=== PATIENT | male | born 1960 | race Caucasian/White ===

== ENCOUNTER 2018-03-28 12:54 | Inpatient (IN) | payer BC ==
[~2018-03-28] VITALS: Ht 170.2 cm; Wt 121.6 kg
[2018-03-28 12:55] VITALS: BP 173/107
--- NOTE | 2018-03-28 13:04 | NUR ---
AMBULATES OT BED 6. PT STATES "I FEEL MUCH BETTER THAN BEFORE WHEN I CAME IN."
--- NOTE | 2018-03-28 13:07 | NUR ---
C/O CP 02/27 ASSOCIATED WITH SOB, MILD DIZZINESS, AND DIAPHORESIS SUDDEN ONSET THIS MORNING WHILE AT REST. DENIES N/V. HX: DENIES. DENIES N/V/D; SKIN IS PINK/WARM/DRY; PATIENT POSITIONED FOR COMFORT; HOB ELEVATED; BEDRAILS UP X2; BED DOWN. ER MD MADE AWARE OF PT STATUS.
[2018-03-28] MEDS ORDERED: MORPHINE SULFATE 2 MG/ML SYR IVP ONE (13:40)
[2018-03-28] MEDS ORDERED: ASPIRIN 81 MG TAB.CHEW PO ONE (13:40)
[2018-03-28] MEDS ORDERED: NITROGLYCERIN 0.4 MG TAB SL ONE ×4 (13:40→15:05)
--- NOTE | 2018-03-28 13:56 | NUR ---
lab at bedside
--- NOTE | 2018-03-28 14:07 | NUR ---
Note undone in EDM - 03/28/18 at 1431 by MED1 C/O CP 02/27 ASSOCIATED WITH SOB, MILD DIZZINESS, AND DIAPHORESIS SUDDEN ONSET THIS MORNING WHILE AT REST. DENIES N/V. HX: DENIES. DENIES N/V/D; SKIN IS PINK/WARM/DRY; PATIENT POSITIONED FOR COMFORT; HOB ELEVATED; BEDRAILS UP X2; BED DOWN. ER MADE AWARE OF PT STATUS.
--- NOTE | 2018-03-28 14:11 | NUR ---
2ND DOSE OF NTD [address] GOODEN ORDERED .
[2018-03-28 14:15] LABS: BASOPHILS # (AUTO) 0.1 K/uL (0.00-0.22); BASOPHILS % (AUTO) 0.8 % (0.0-2.0); EOSINOPHILS # (AUTO) 0.6 K/uL (0-0.4); HEMATOCRIT 48.9 % (36-52); HEMOGLOBIN 16.1 g/dL (12.0-18.0); LYMPHOCYTES # (AUTO) 2.5 K/uL (2.0-11.5); LYMPHOCYTES % (AUTO) 27.9 % (20.5-51.1); MEAN CORPUSCULAR HEMOGLOBIN 28 pg (27-31); MEAN CORPUSCULAR HGB CONC 33 g/dL (33-37); MEAN CORPUSCULAR VOLUME 85.6 fL (80-94); MONOCYTES # (AUTO) 0.9 K/uL (0.8-1.0); MONOCYTES % (AUTO) 9.7 % (1.7-9.3); NEUTROPHILS # (AUTO) 4.8 K/uL (1.8-7.7); NEUTROPHILS % (AUTO) 54.6 % (42.2-75.2); PLATELET COUNT (AUTO) 256 K/uL (140-450); RED BLOOD CELL COUNT(AUTO) 5.72 MIL/uL (4.20-6.10); RED CELL DISTRIBUTION WIDTH 13.7 % (11.6-13.7); WHITE BLOOD COUNT (AUTO) 8.9 K/uL (4.8-10.8)
[2018-03-28 14:42] LABS: ANION GAP 14.8 (8-16); CARBON DIOXIDE 26.1 mmol/L (21-32); POTASSIUM 3.9 mmol/L (3.5-5.1)
[2018-03-28 14:47] LABS: ALBUMIN 4.2 g/dL (3.4-5.0); TOTAL BILIRUBIN 0.4 mg/dL (0.0-1.0)
[2018-03-28] MEDS ORDERED: MORPHINE SULFATE 4 MG/ML SYR IVP ONE (15:05)
[2018-03-28] MEDS ORDERED: NITROGLYCERIN 2% 1 GM PKT TP ONE (15:05)
[2018-03-28] MEDS ORDERED: PANTOPRAZOLE 40 MG INJ VIAL IVP ONE (15:05)
[2018-03-28] MEDS ORDERED: METOCLOPRAMIDE 10 MG/2 ML INJ VIAL IVP ONE (15:05)
[2018-03-28] MEDS ORDERED: HYDROcodone/APAP 7.5/325 MG 1 TAB PO PRN (15:25)
[2018-03-28] MEDS ORDERED: ONDANSETRON 4 MG/2 ML VIAL IM/IVP PRN (15:25)
[2018-03-28] MEDS ORDERED: DOCUSATE SODIUM 100 MG GELCAP PO PRN (15:25)
--- NOTE | 2018-03-28 16:20 | NUR ---
Patient appears to be resting comfortably in bed. Vital Signs within normal limits. Respirations even and unlabored.WILL CONTINUE TO MONITOR.
[2018-03-28 16:53] LABS: PROTHROMBIN TIME 9.2 secs (10.8-13.4)
[2018-03-28 16:58] LABS: FREE T4 (FREE THYROXINE) 1.04 ng/dL (0.76-1.46); MAGNESIUM 2.2 mg/dL (1.8-2.4); PHOSPHORUS 2.5 mg/dL (2.5-4.9); THYROID STIMULATING HORMONE 1.59 uIU/mL (0.34-3.74)
[2018-03-28] MEDS ORDERED: LISINOPRIL 5 MG TAB PO SCH (17:00)
[2018-03-28] MEDS ORDERED: MORPHINE SULFATE 2 MG/ML SYR IVP PRN (17:20)
--- NOTE | 2018-03-28 17:44 | NUR ---
Patient will be admitted to care of dr gomez. Admited to TELE. Will go to room 119B. Belongings list completed. Report to TREY ALCARAZ.
[2018-03-28 17:45] VITALS: BP 135/87
--- NOTE | 2018-03-28 17:45 | NUR ---
PATIENT ARRIVED VIA BED TO FLOOR, PATIENT AMBULATED ON STEADY GAIT TO BED. PATIENT AOX4, STABLE. DX OF CHEST PAIN, HX OF HTN. NO CHEST PAIN AT THE MOMENT. LUNG SOUND CLEAR, ACTIVE BOWEL SOUNDS. IV TO LEFT AC 20G INTACT, ASYMPTOMATIC AND PATENT. UPDATED BOARD. INFORMED PATIENT ABOUT PLAN OF CARE. PATIENT VERBALIZED UNDERSTANDING. MRSA SCREENING DONE. INITIAL ASSESSMENT DONE. ORIENTED PATIENT TO ROOM, CALL LIGHT, PHONE, AND BATHROOM. ALSO BROUGHT PATIENT'S CARDIAC DINNER. SAFETY PRECAUTION IN PLACE, CALL LIGHT WITHIN REACH, WILL CONTINUE TO MONITOR PATIENT.
[2018-03-28] MEDS: ACETAMINOPHEN 325 MG TAB PO PRN ×2 (17:55→18:19)
--- NOTE | 2018-03-28 18:19 | NUR ---
PATIENT C/O OF HEADACHE. TYLENOL GIVEN. ONE PILL FELL ON FLOOR. ANOTHER ONE TAKEN FROM PYXIS AND GIVEN. PATIENT TOLERATED IT WELL. PATIENT CURRENTLY EATING DINNER COMFORTABLY. DENIES CHEST PAIN. SOCKS GIVEN. WILL CONTINUE TO MONITOR PATIENT.
[2018-03-28] MEDS: NACL 0.9% 1,000 ML IV SCH (18:21)
--- NOTE | 2018-03-28 19:35 | NUR ---
REPORT GIVEN TO INTERNET MARKETING ASSISTANT NURSE AT BEDSIDE FOR CONTINUITY OF CARE. PATIENT IN STABLE CONDITION.
--- NOTE | 2018-03-28 19:50 | NUR ---
RECEIVED SBAR FROM AHMET CASANOVA RN. PATIENT GSC 15 AND HAS PLEASANT DEMEANOR. BREATH SOUNDS ARE CLEAR AND ACTIVE BOWEL SOUNDS NOTED. THERE IS A #20 IN THE RAC RECEIVING NS AT 100 ML/HR. SITE IS DRY, INTACT, AND ASYMPTOMATIC. VSS AND PATIENT IS AFEBRILE. INITIAL ASSESSMENT COMPLETE. NEEDS MET AT THIS TIME. HOB AT 30 DEGREES WITH BED IN LOWEST POSITION. CALL LIGHT WITHIN REACH. CONTINUE TO MONITOR PATIENT.
[2018-03-28 20:00] VITALS: BP 135/84
[2018-03-28] MEDS: METOPROLOL 25 MG TAB PO SCH (21:36)
--- NOTE | 2018-03-28 21:40 | NUR ---
TOLERATED DUE MEDICATION WITH NO SIGNS OF DISTRESS NOTED. NEEDS MET AT THIS TIME. HOB AT 30 DEGREES WITH BED IN LOWEST POSITION. CALL LIGHT WITHIN PATIENT'S REACH. CONTINUE TO MONITOR PATIENT.
[2018-03-29] VITALS (8 sets, daily range): BP systolic 122–165; BP diastolic 60–103
--- NOTE | 2018-03-29 00:08 | NUR ---
PATIENT SLEEPING IN BED. AROUSABLE BY NAME. VSS AND PT AFEBRILE. NO C/O PAIN OR DISCOMFORT AT THIS TIME. PATIETNT'S NEEDS MET AT THIS TIME. HOB AT 30 DEGREES WITH BED IN LOWEST POSITION. CALL LIGHT WITHIN REACH. CONTINUE TO MONITOR PATIENT.
[2018-03-29 01:26] LABS: BILIRUBIN,URINE NEGATIVE (NEGATIVE); BLOOD, URINE NEGATIVE (NEGATIVE); LEUKOCYTE ESTERASE ,URINE NEGATIVE (NEGATIVE); NITRITE, URINE NEGATIVE (NEGATIVE); UGLUCOSE NEGATIVE (NEGATIVE)
[2018-03-29 01:27] LABS: APPEARANCE,URINE CLEAR (CLEAR); COLOR,URINE YELLOW (YELLOW)
[2018-03-29 01:29] LABS: RBC,URINE NONE SEEN /HPF (0-5); WBC,URINE NONE SEEN /HPF (0-5)
--- NOTE | 2018-03-29 03:35 | NUR ---
PATIENT ASLEEP IN BED, BUT IS AROUSABLE BY NAME. VSS AND PATIENT IS AFEBRILE. DENIES PAIN OR DISCOMFORT. NEEDS MET AT THIS TIME. CALL LIGHT WITHIN REACH. CONTINUE TO MONITOR PATIENT.
[2018-03-29 05:16] LABS: BARBITURATE, URINE NEG. ng/ml (NEG <=200); BENZODIAZEPINE, URINE NEG. ng/mL (NEG <=200); CANNABINOID, URINE NEG. ng/mL (NEG <=50); COCAINE, URINE NEG. ng/mL (NEG <=300); OPIATE, URINE NEG. ng/mL (NEG <=2000); PHENCYCLIDINE SCREEN,URINE NEG. ng/mL (NEG <=25)
[2018-03-29 06:18] LABS: T4 (THYROXINE) 8.3 ug/dL (4.5-12.0)
[2018-03-29 07:04] LABS: BASOPHILS # (AUTO) 0.1 K/uL (0.00-0.22); BASOPHILS % (AUTO) 0.5 % (0.0-2.0); EOSINOPHILS # (AUTO) 0.3 K/uL (0-0.4); EOSINOPHILS % (AUTO) 2.4 % (0.0-4.0); HEMATOCRIT 44.9 % (36-52); HEMOGLOBIN 14.9 g/dL (12.0-18.0); LYMPHOCYTES # (AUTO) 1.8 K/uL (2.0-11.5); LYMPHOCYTES % (AUTO) 13.9 % (20.5-51.1); MEAN CORPUSCULAR HEMOGLOBIN 28 pg (27-31); MEAN CORPUSCULAR HGB CONC 33 g/dL (33-37); MEAN CORPUSCULAR VOLUME 85.4 fL (80-94); MONOCYTES # (AUTO) 1.1 K/uL (0.8-1.0); MONOCYTES % (AUTO) 8.4 % (1.7-9.3); NEUTROPHILS # (AUTO) 9.7 K/uL (1.8-7.7); NEUTROPHILS % (AUTO) 74.8 % (42.2-75.2); PLATELET COUNT (AUTO) 233 K/uL (140-450); RED BLOOD CELL COUNT(AUTO) 5.26 MIL/uL (4.20-6.10); RED CELL DISTRIBUTION WIDTH 13.6 % (11.6-13.7)
[2018-03-29 07:16] LABS: ANION GAP 11.1 (8-16); CARBON DIOXIDE 27.8 mmol/L (21-32); CREATININE 0.8 mg/dL (0.7-1.3); POTASSIUM 3.9 mmol/L (3.5-5.1)
--- NOTE | 2018-03-29 07:18 | NUR ---
RECEIVED REPORT FROM NIGHTSHIFT NURSE. PATIENT IS AWAKE AT THIS TIME AND PRESENTS IN HIGH-FOWLERS POSITION. PATIENT ALERT AND ORIENTED X4. PATIENT HAS AN IV NOTED ON HIS RIGHT AC 20G RUNNING NORMAL SALINE AT 50ML/HR. NO DISTRESS NOTED AT THIS TIME. LOWERED BED TO LOWEST SETTING. CALL LIGHT WITHIN REACH OF PATIENT. UPDATED BOARD IN PATIENT'S ROOM. WILL CONTINUE TO MONITOR PATIENT.
--- NOTE | 2018-03-29 07:18 | NUR ---
SBAR GIVEN TO KIM ALCARAZ FOR CONTINUITY OF CARE.
[2018-03-29 07:28] LABS: PHOSPHORUS 2.8 mg/dL (2.5-4.9)
[2018-03-29 07:30] LABS: CHOL/HDL RATIO 4.9 (1-4.5)
--- NOTE | 2018-03-29 07:53 | NUR ---
PATIENT'S BLOOD PRESSURE IS AT 165/103. PATIENT IS ASYMPTOMATIC. WILL MEDICATE WITH PATIENT'S BLOOD PRESSURE MEDICATION.
[2018-03-29] MEDS: METOPROLOL 25 MG TAB PO SCH (08:00)
[2018-03-29] MEDS ORDERED: HEPARIN PER PHARMACY MC PRN (08:10)
[2018-03-29] MEDS ORDERED: hePARIN / DEXT 5% PREMIX 250 ML IV SCH (08:10)
[2018-03-29] MEDS: NITROGLYCERIN 0.4 MG TAB SL PRN ×2 (08:14→08:28)
--- NOTE | 2018-03-29 08:28 | NUR ---
PATIENT BLOOD PRESSURE WENT DOWN TO 152/88, 78 HR. ADMINISTERED ANOTHER TABLET OF NITROSTAT. PATIENT STILL COMPLAINS OF CHEST PAIN.
[2018-03-29] MEDS: hePARIN / DEXT 5% PREMIX 250 ML IV SCH ×2 (08:53→16:42)
[2018-03-29] MEDS ORDERED: LISINOPRIL 5 MG TAB PO SCH (09:00)
[2018-03-29] MEDS ORDERED: ASPIRIN 81 MG TAB.CHEW PO SCH (09:00)
[2018-03-29] MEDS ORDERED: ATORVASTATIN 20 MG TAB PO SCH (09:00)
--- NOTE | 2018-03-29 11:04 | NUR ---
PATIENT HAS BEEN SCREENED AND CATEGORIZED HIGH NUTRITION RISK. PATIENT WILL BE SEEN WITHIN 1-2 DAYS OF ADMISSION. 03/29/18 03/30/[address]
--- NOTE | 2018-03-29 11:26 | NUR ---
CM NOTE RECEIVED ORDER FOR HIGHER LEVEL OF CARE TO [facility] PER DR. ROSA BY TOMORROW FOR CORONARY ANGIOGRAM. SPOKE WITH BERT OF [facility] PULP PILER PH# [phone] WHO CONFIRMED THAT PATIENT IS SCHEDULED FOR ANGIOGRAM ON 03/30/18 AND SHE REQUESTED CLINICAL PACKET TO BE FAXED TO [facility] [phone]. PER BERT, PATIENT HAS TO BE AT [facility] BY 7AM ON 03/30/18, TO STOP BY THEIR ER FIRST BEFORE GOING TO THEIR PULP PILER. FAXED CLINICAL PACKET TO [facility] [phone]. CHARGE NURSE GABY DEMPSEY.
--- NOTE | 2018-03-29 12:20 | NUR ---
PATIENT SLEEPING AT THIS TIME. NO DISTRESS NOTED. WILL CONTINUE TO MONITOR PATIENT.
--- NOTE | 2018-03-29 12:47 | NUR ---
CM NOTE PER [facility] VERIFIER JEANIE, SEND REVIEWS TO [facility] FAX# [phone] PH# [phone] OPTION 6, REFERENCE# [id number], NO ASSIGNED CM AT THIS TIME. FAXED INITIAL REVIEW AND ORDER FOR HIGHER LEVEL OF CARE TO [facility] FOR ANGIOGRAM TO [facility] FAX# [phone] PH# [phone] BECKFORD, THEY WILL DISCONTINUE THE HEPARIN DRIP BEFORE PATIENT GOES TO [facility]. PER SHANIA [facility] PH# [phone] MANAGER NURSING HOME TIME 6:00AM 03/30/18 GOING TO [facility]. CHARGE NURSE GABY AWARE. Addendum: 03/29/18 at 1346 by Rosetta Bills CM CM NOTE SPOKE WITH LAURA Diaz [facility] FRANKLIN CLAY AUTH DEPT PH# [phone] WHO WAS INFORMED OF ORDER FOR HIGHER LEVEL OF CARE FOR ANGIOGRAM [facility] FOR TOMORROW, SEND REVIEWS TO [facility] FAX# [phone]
[2018-03-29] MEDS: NACL 0.9% 1,000 ML IV SCH (12:49)
--- NOTE | 2018-03-29 14:42 | NUR ---
INFORMED DR. BECKFORD OF PATIENT'S ELEVATED BLOOD PRESSURE. AWAITING ORDERS.
[2018-03-29] MEDS ORDERED: METOPROLOL 25 MG TAB PO SCH ×2 (15:00→21:00)
[2018-03-29] MEDS ORDERED: ASPI81CT95 PO (16:44)
[2018-03-29] MEDS ORDERED: LISI-424 PO (16:44)
[2018-03-29] MEDS ORDERED: ATOR20TA40 PO (16:44)
[2018-03-29] MEDS ORDERED: MORP2SOL18 IVP (16:44)
[2018-03-29] MEDS ORDERED: METO25TA PO (16:44)
--- NOTE | 2018-03-29 16:50 | NUR ---
PATIENT RESTING IN BED AT THIS TIME. FAMILY MEMBER AT BEDSIDE.
--- NOTE | 2018-03-29 19:15 | NUR ---
GAVE REPORT TO NIGHTSHIFT NURSE AT BEDSIDE. PATIENT IN STABLE CONDITION.
--- NOTE | 2018-03-29 19:22 | NUR ---
PT REFUSED CPAP. EDUCATED PT ON IMPORTANCE OF CPAP. PT STILL REFUSED CPAP. WILL KEEP CPAP ON STANDBY. WILL CONTINUE TO MONITOR.
[2018-03-29] MEDS: ACETAMINOPHEN 325 MG TAB PO PRN (20:39)
--- NOTE | 2018-03-29 21:00 | NUR ---
PTT RESULT CAME 48.9. NO CHANGES IN RATE PER PROTOCOL. ORDER PTT Q6 HRS.
--- NOTE | 2018-03-29 21:05 | NUR ---
MEDICATION GIVEN TOLERATED. BED IN LOW LOCKED POSITION. NO S/S OF DISTRESS NOTED. WILL CONTINUE TO MONITOR.
[2018-03-30] VITALS: BP 117/72
--- NOTE | 2018-03-30 | NUR ---
V/S TAKEN AND RECORDED. SEEN PATIENT ASLEEP COMFORTABLE ON BED. CALL LIGHT WITHIN REACH.
--- NOTE | 2018-03-30 02:50 | NUR ---
SEEN PATIENT ASLEEP ON BED. NO S/S OF DISTRESS NOTED. NO COMPLAIN OF PAIN AT THIS TIME. CALL LIGHT WITHIN REACH. WILL CONTINUE TO MONITOR.
[2018-03-30 03:18] LABS: ANION GAP 9.6 (8-16); CARBON DIOXIDE 28.4 mmol/L (21-32); CREATININE 0.9 mg/dL (0.7-1.3)
[2018-03-30 03:22] LABS: MAGNESIUM 1.9 mg/dL (1.8-2.4)
[2018-03-30 03:24] VITALS: BP 117/72
[2018-03-30 03:32] LABS: BASOPHILS # (AUTO) 0.1 K/uL (0.00-0.22); BASOPHILS % (AUTO) 0.5 % (0.0-2.0); EOSINOPHILS # (AUTO) 0.1 K/uL (0-0.4); EOSINOPHILS % (AUTO) 0.9 % (0.0-4.0); HEMATOCRIT 49.2 % (36-52); HEMOGLOBIN 16.3 g/dL (12.0-18.0); LYMPHOCYTES # (AUTO) 1.7 K/uL (2.0-11.5); LYMPHOCYTES % (AUTO) 10.6 % (20.5-51.1); MEAN CORPUSCULAR HEMOGLOBIN 28 pg (27-31); MEAN CORPUSCULAR HGB CONC 33 g/dL (33-37); MEAN CORPUSCULAR VOLUME 84.6 fL (80-94); MONOCYTES # (AUTO) 1.6 K/uL (0.8-1.0); NEUTROPHILS # (AUTO) 12.6 K/uL (1.8-7.7); PLATELET COUNT (AUTO) 233 K/uL (140-450); RED BLOOD CELL COUNT(AUTO) 5.81 MIL/uL (4.20-6.10); RED CELL DISTRIBUTION WIDTH 13.8 % (11.6-13.7)
[2018-03-30 04:00] VITALS: BP 127/82
[2018-03-30 04:43] LABS: WHITE BLOOD COUNT (AUTO) 16.1 K/uL (4.8-10.8)
--- NOTE | 2018-03-30 06:15 | NUR ---
PATIENT PICK -UP BY THE AMBULANCE STAFF. PERSONAL BELONGINGS TAKEN BY THE PATIENT . REMOVE THE ID BAND AND MONITOR. PATIENT LEFT IN STABLE CONDITION. ENDORSEMENT GIVEN TO [employer] ETCHER
--- NOTE | 2018-03-30 06:30 | NUR ---
CALLED [facility] CUTTING SUPERVISOR DEPARTMENT BUT NOBODY ANSWER. CHARGE NURSE AWARE.
== END 2018-03-30 06:10 | disposition short-term general hospital (02) | DRG 281 ==
LOC: MED 12:54 → MTU 15:28
PROVIDERS: ADMIT General Practice; ATTEND General Practice
DX: I21.4 Non-ST elevation (NSTEMI) myocardial infarction (principal); D68.59 Other primary thrombophilia; Z68.41 Body mass index [BMI] 40.0-44.9, adult; E87.1 Hypo-osmolality and hyponatremia; E11.65 Type 2 diabetes mellitus with hyperglycemia; I16.0 Hypertensive urgency; E66.01 Morbid (severe) obesity due to excess calories; I10 Essential (primary) hypertension; G47.33 Obstructive sleep apnea (adult) (pediatric); K42.9 Umbilical hernia without obstruction or gangrene; I51.7 Cardiomegaly; E78.5 Hyperlipidemia, unspecified; R74.0 Nonspecific elevation of levels of transaminase and lactic acid dehydrogenase [LDH]; Z79.899 Other long term (current) drug therapy; Z82.49 Family history of ischemic heart disease and other diseases of the circulatory system; Z79.82 Long term (current) use of aspirin
CPT/HCPCS: 36415; 71045; 80048; 80053; 80305; 81001; 82150; 83036; 83690; 83735; 83880; 84100; 84436; 84439; 84443; 84479; 84484; 85025; 85610; 85730; 87081; 93005; 93925; 93970; 96374; 96375; 96376; 99285; C9113; J1644; J2270; J2765; J7030; Q0092